=== PATIENT | male | born 1965 | race Caucasian/White ===

== ENCOUNTER → 2016-07-27 | Outpatient (CLI) | payer BC ==
[~2016-07-27] MED LIST: BECLOMETHASONE; CLARITIN D TAB1 TAB PO; COUMADIN 5MG5 MG/TAB PO; COZAAR 50MG50 MG/TAB PO; FLONASE NASAL S16 GM NS; MONTELUKAST PO; MUCINEX1200 MG PO; PRILOSEC 20MG20 MG PO; PROAIR HFA0.09 MG/AC IH; QVAR0.08 MG/AC IH; RT ADVAIR HFA 2312 G IH; SINGULAIR 110 MG/TAB PO
== END ==
LOC: COL.VAS 12:39
DX: M79.662 Pain in left lower leg (principal); M79.89 Other specified soft tissue disorders; I82.432 Acute embolism and thrombosis of left popliteal vein

== ENCOUNTER 2016-07-30 09:53 | Day surgery (SDC) | payer BC ==
[~2016-07-30] VITALS: Ht 188.1 cm; Wt 123.6 kg
[2016-07-30] VITALS (15 sets, daily range): BP systolic 148–187; BP diastolic 95–131; PULSE 57–98; TEMP 98–98.3
[~2016-07-30 09:53] MED LIST changes: -COUMADIN 5MG5 MG/TAB PO; -MUCINEX1200 MG PO; -QVAR0.08 MG/AC IH; -SINGULAIR 110 MG/TAB PO
[2016-07-30 10:48] LABS: HEMATOCRIT 46.8 % (42.0-52.0); HEMOGLOBIN 16.9 g/dl (13.5-18.0); MEAN CELL VOLUME 87 fl (80.0-100.0); MEAN CORPUSCULAR HEMOGLOBIN 31 pg (27.0-31.0); MEAN CORPUSCULAR HGB CONC 36 g/dl (33.0-37.0); MEAN PLATELET VOLUME 9.5 fl (7.4-10.4); PLATELET COUNT 187 K/mm3 (130-400); RED BLOOD COUNT 5.38 M/mm3 (4.20-5.60); REDCELL DISTRIBUTION WIDTH-CV 12.6 % (11.5-14.5); WHITE BLOOD COUNT 5.1 K/mm3 (4.8-10.8)
[2016-07-30] MEDS ORDERED: QVAR0.08 MG/AC IH (10:52)
[2016-07-30] MEDS ORDERED: SINGULAIR 110 MG/TAB PO (10:53)
[2016-07-30 10:54] LABS: CREATININE, serum 0.85 mg/dL (0.66-1.25); INR 1.1 (0.8-3.0)
[2016-07-30] MEDS ORDERED: MUCINEX1200 MG PO (10:54)
[2016-08-07] MEDS ORDERED: COUMADIN 5MG5 MG/TAB PO (08:19)
== END 2016-07-30 18:15 | disposition home or self-care (01) ==
LOC: COL.CAR 09:53
PROVIDERS: Radiology Diagnostic Radiology
DX: I82.432 Acute embolism and thrombosis of left popliteal vein (principal); I82.412 Acute embolism and thrombosis of left femoral vein; I10 Essential (primary) hypertension; I45.4 Nonspecific intraventricular block; E78.5 Hyperlipidemia, unspecified; E78.00 Pure hypercholesterolemia, unspecified; K21.9 Gastro-esophageal reflux disease without esophagitis; J45.909 Unspecified asthma, uncomplicated; G47.33 Obstructive sleep apnea (adult) (pediatric); Z83.3 Family history of diabetes mellitus; Z82.49 Family history of ischemic heart disease and other diseases of the circulatory system
CPT/HCPCS: C1757; C1769; J0360; J1644; J2250; J2405; J2997; J3010; J7030; Q9967

== ENCOUNTER 2016-08-08 07:00 | Outpatient (RCR) | payer BC ==
[2016-07-27 14:01] VITALS: BP 143/99; PULSE 91; TEMP 97.9
[2016-07-28 08:10] VITALS: BP 152/98; PULSE 91; TEMP 98.1
[2016-07-28 19:04] VITALS: BP 168/113; PULSE 91; TEMP 98.7
[2016-07-29 14:14] VITALS: BP 140/92; PULSE 87; TEMP 98.5
[2016-07-31 12:05] VITALS: BP 115/80; PULSE 87; TEMP 97.2
[2016-08-01 08:36] VITALS: BP 135/91; PULSE 97; TEMP 98.3
[2016-08-01 08:58] LABS: INR 1.1 (0.8-3.0); PROTHROMBIN TIME 12.6 SECONDS (9.7-12.8)
[2016-08-02 07:35] VITALS: BP 151/100; PULSE 105; TEMP 98.1
[2016-08-03 10:00] VITALS: BP 120/77; PULSE 92; TEMP 98.3
[2016-08-03 19:36] VITALS: BP 114/67; PULSE 90; TEMP 98
[2016-08-04 07:40] VITALS: BP 135/86; PULSE 97; TEMP 97.8
[2016-08-05 10:54] VITALS: BP 151/97; PULSE 76; TEMP 97.9
[2016-08-06 09:34] VITALS: BP 139/92; PULSE 97; TEMP 97.7
[2016-08-07 08:20] VITALS: BP 133/93; PULSE 85; TEMP 98.2
[~2016-08-08] VITALS: Ht 188 cm; Wt 125.2 kg
[~2016-08-08 07:00] MED LIST changes: +COUMADIN 5MG5 MG/TAB PO; +MUCINEX1200 MG PO; +QVAR0.08 MG/AC IH; +SINGULAIR 110 MG/TAB PO
[2016-08-08 09:06] VITALS: BP 134/92; PULSE 84; TEMP 98.1
[2016-08-08 09:29] LABS: INR 2.2 (0.8-3.0); PROTHROMBIN TIME 25.2 SECONDS (9.7-12.8)
== END 2016-10-25 | disposition home or self-care (01) ==
LOC: EUO
PROVIDERS: Family Medicine
DX: I82.402 Acute embolism and thrombosis of unspecified deep veins of left lower extremity (principal); Z79.01 Long term (current) use of anticoagulants
CPT/HCPCS: J1560

== ENCOUNTER → 2018-11-08 | Outpatient (CLI) | payer BC | LOC: COL.RAD 07:49 | DX: M16.0 Bilateral primary osteoarthritis of hip (principal) | CPT/HCPCS: A9585; J3301; Q9967 ==

== ENCOUNTER → 2019-02-07 | Outpatient (CLI) | payer BC | LOC: COL.RAD 08:40 | DX: M16.11 Unilateral primary osteoarthritis, right hip (principal) | CPT/HCPCS: J3301; Q9967 ==

== ENCOUNTER → 2019-06-07 | Outpatient (CLI) | payer BC | LOC: COL.RAD 07:51 | DX: M25.551 Pain in right hip (principal) | CPT/HCPCS: J3301; Q9967 ==

== ENCOUNTER → 2019-08-24 | Outpatient (CLI) | payer BC | LOC: COL.RAD 13:00 | DX: M16.11 Unilateral primary osteoarthritis, right hip (principal) | CPT/HCPCS: J3301; Q9967 ==

== ENCOUNTER → 2019-11-30 | Outpatient (CLI) | payer BC | LOC: ZCOL.LAB 16:23 | DX: Z20.828 Contact with and (suspected) exposure to other viral communicable diseases (principal) ==

== ENCOUNTER → 2019-12-13 | Outpatient (CLI) | payer BC | LOC: COL.VAS 12-04 12:30 | DX: Z01.818 Encounter for other preprocedural examination (principal); I82.532 Chronic embolism and thrombosis of left popliteal vein; Z96.641 Presence of right artificial hip joint ==